=== PATIENT | male | born 1980 | race Caucasian/White ===

== ENCOUNTER 2017-09-19 19:50 | Emergency (ER) | payer OTHER | END 2017-09-19 21:43 | disposition home or self-care (01) | LOC: FTE 19:50 | DX: J20.9 Acute bronchitis, unspecified (principal) | CPT/HCPCS: 99283; Z7502 ==

== ENCOUNTER 2017-12-18 12:36 | Emergency (ER) | payer OTHER | END 2017-12-18 14:26 | disposition home or self-care (01) | LOC: E/R 12:36 | DX: J30.9 Allergic rhinitis, unspecified (principal); M25.511 Pain in right shoulder | CPT/HCPCS: 73030; 73030-RT; 99283-25 ==

== ENCOUNTER 2018-03-21 11:37 | Emergency (ER) | payer OTHER ==
[2018-03-21] MEDS ORDERED: HYDROCODONE/APAP (10/325) TAB PO (14:00)
[2018-03-21] MEDS: IBUPROFEN 800 MG TAB PO (14:19)
== END 2018-03-21 15:05 | disposition home or self-care (01) ==
LOC: FTE 15:05
DX: R07.89 Other chest pain (principal)
CPT/HCPCS: 71045; 93005; 99284-25

== ENCOUNTER 2018-06-25 20:43 | Emergency (ER) | payer OTHER ==
[2018-06-25] MEDS: KETOROLAC 60 MG INJ IM (21:20)
== END 2018-06-25 21:45 | disposition home or self-care (01) ==
LOC: FTE 20:43
DX: M54.10 Radiculopathy, site unspecified (principal)
CPT/HCPCS: 96372; 99284-25

== ENCOUNTER 2019-01-30 14:55 | Emergency (ER) | payer OTHER ==
[2019-01-30] MEDS: IBUPROFEN 600 MG TAB PO (16:58)
== END 2019-01-30 18:27 | disposition home or self-care (01) ==
LOC: FTE 14:55
DX: M25.511 Pain in right shoulder (principal)
CPT/HCPCS: 71045; 73030-RT; 99284-25